=== PATIENT | female | born 1975 | race Caucasian/White ===

== ENCOUNTER → 2021-08-05 00:27 | Outpatient (CLI) | payer BC, SELFPAY ==
[2021-08-05 13:07] LABS: SARS-CoV-2 RNA PCR Negative
== END ==
PROVIDERS: PCP Nurse Practitioner Family; Visit Provider Surgery
DX: Z01.812 Encounter for preprocedural laboratory examination (principal); Z20.822 Contact with and (suspected) exposure to COVID-19
CPT/HCPCS: C9803; U0003; U0005

== ENCOUNTER 2021-08-05 08:42 | Outpatient (CLI) | payer BC, SELFPAY ==
[2021-08-05 09:09] LABS: Alanine Aminotransferase 18 U/L (4-35); Alkaline Phosphatase 77 U/L (38-126); Amylase 63 U/L (30-110); Aspartate Amino Transferase 23 U/L (14-36); Bilirubin,Total 0.5 mg/dL (0.2-1.3); Lipase 33 U/L (23-300)
--- NOTE | 2021-08-05 09:11 | ECG_ITS ---
Measurements Intervals [place] Rate: 69 P: 63 TX: 145 QRS: 8 QRSD: 97 T: 34 QT: 409 QTc: 439 Interpretive Statements SINUS RHYTHM NORMAL ECG NO PREVIOUS ECG AVAILABLE FOR COMPARISON Electronically Signed On 08-05-2021 13:21:00 CDT by Alpesh Urban M.D.
== END 2021-08-05 08:43 | disposition home or self-care (01) ==
LOC: ANHLAB 08:44
PROVIDERS: PCP Nurse Practitioner Family; Visit Provider Surgery
DX: Z01.818 Encounter for other preprocedural examination (principal); K80.20 Calculus of gallbladder without cholecystitis without obstruction; F17.200 Nicotine dependence, unspecified, uncomplicated
CPT/HCPCS: 36415; 80076; 82150; 83690; 86850; 86900; 86901; 93005

== ENCOUNTER 2021-08-08 01:35 | Day surgery (SDC) | payer BC, SELFPAY ==
[2021-08-03 15:31] VITALS: BMI 30.1
--- NOTE | 2021-08-03 15:45 | PC.NURSE ---
Report to the Outpatient Waiting Room, entrance under the green pavilion located off [facility], at time 12:00 on date 08/08/21. OR Time: 2:00. - You and your visitor will be asked a series of questions to screen for COVID 19 for your protection. - A mask is required within the hospital. One visitor will be allowed to accompany the patient into the hospital. Patients visitor will be instructed to remain with patient at all times or leave the building. We will allow the visitor to come back to the postoperative area when patient is ready. Preoperative COVID Testing Requirements: COVID TEST 08/05 AT 8:35 No COVID Test needed if: (proof is required; if not received patient will have Rapid Test prior to entry) - Patient has received COVID Vaccine at least 14 days prior to procedure date or - Patient has positive COVID test result within last 90 days of surgery date. COVID Test needed if above criteria is not met If not COVID vaccinated a COVID test must be conducted within 72 hours of surgery and patient is asked to isolate self from time of testing until procedure. You will go to the [facility] for your COVID testing. The [facility] is located at the corner of [address] [facility]. You will only be called if COVID results are positive and your surgeon may reschedule your elective surgery date. Patients may have clear liquids (water, carbonated beverages, clear teas, apple juice) until 3 hours prior to surgery (11:00) with a maximum of 20 ounces. - No food from midnight until time of surgery Take the following medications with a SIP of water the morning of surgery: INHALER (IF NEEDED) Medications to discontinue per physician: N/A Date to take last dose: N/A Please no make-up, nail croatian, hairspray, perfume, deodorant, or body powder the day of surgery. No jewelry (including any body piercings) or valuables the day of surgery, leave them at home. Please take a shower or bath the night before, or the morning of, surgery with an antibacterial soap. Wear comfortable, loose fitting clothing. HIBICLENS SHOWER - Jewelry must be removed prior to entering the operating room. Rings and piercings that are not removed may be cut off. - The hospital will not accept responsibility for valuables. - Please leave all valuables, including medications, at home the day of surgery. If you are going home after surgery, a licensed local combination truck driver must drive you home. - NO public transportation without another adult. - We recommend that an adult stay with you for 24 hours following discharge. - We also recommend that you do not drive, make important decision, drink alcoholic beverages, or take any drugs that were not prescribed by your health care provider for at least 24 hours after your discharge time. Follow any additional instructions given to you from your surgeon. Telephone instructions given to STONE PADILLA and asked if any additional questions and then verbalized understanding. Patient advised to call surgeon office or pre surgery nurse liaison [phone] if any additional questions.
[2021-08-08] VITALS (8 sets, daily range): BP systolic 134–161; BP diastolic 67–87; PULSE 66–91; RESP 10–18; TEMP 36.1–36.3; O2SAT 95–100
--- NOTE | 2021-08-08 08:17 | P.PNAN_ITS ---
Anes - Initial Pre Proc Eval Procedure: Operation Date: 08/08/21 14:00 Proposed Procedures p Laparoscopic Cholecystectomy, Possible Open - Juan David Mei DO Date/Time: 08/08/21 08:17 Surgeon: Juan David Mei DO Pre Op Diagnosis: symptomatic cholelithiasis Patient Data Age: 45 Gender: F Height: 1.6 m Weight: 77.11 kg Allergies Allergy/AdvReac Type Severity Reaction Status Date / Time apremilast [From Otezla] Allergy Intermediate Hypertension,high Verified 08/08/21 12:23 heart rate codeine AdvReac Severe Nausea and Verified 08/08/21 12:23 Vomiting bupropion AdvReac Intermediate Anxiety Verified 08/08/21 12:23 Home Medications Medication Instructions Recorded Confirmed Type albuterol sulfate 90 mcg/actuation 1 inh INHALATION Q4H 08/03/21 08/08/21 History aerosol inhaler cetirizine 10 mg tablet 10 mg PO HS PRN 08/03/21 08/08/21 History Patient hx anesthesia problems: none Family hx anesthesia problems: none Results Review: All pre-operative results and documents have been reviewed as part of the pre-operative evaluation. FOR[facility]LY [facility] Past Medical History Medical History (Updated 08/08/21 @ 08:17 by Francois Gordon MD) Anxiety Arthritis Asthma Hypercholesterolemia Obesity (BMI 30-39.9) Smoker Symptomatic cholelithiasis Surgical History Surgical History History of delivery History of lymph node excision History of partial thyroidectomy History of tubal ligation Family History Family History Father Hypertension Diabetes mellitus Skin cancer Mother Hypertension Breast cancer Skin cancer Social History Social History Smoking packs per day: 1 Smoking cigarettes per day: 20.0 Years smoked: 20 Smoking pack-years: 20.00 Smoking status: Current every day smoker Tobacco type: cigarettes Alcohol intake: current Alcohol use details: A COUPLE/YEAR Substance use: never Substance use type: does not use Living arrangements: with family Additional occupation/education comments: Computerized Mill [employer] Spiritual care concerns: No Anes - Eval Final PreProcedure Day of Procedure 08/08/21 08:17 Patient weight: obese Heart: regular rate and rhythm Lungs: clear to auscultation and normal air movement Airway: Mallampati scale class II Neurological: alert and oriented Last oral intake: >/= 8 hours ASA classification: III Emergent: no Anesthetic plan: proceed Anesthesia type and monitoring: general ETT Results Review: All pre-operative results and documents have been reviewed as part of the pre-operative evaluation. Informed Consent: The patient's anesthetic plan and its attendant risks and benefits were discussed with the patient/family/POA. Questions were solicited and answers provided to the satisfaction of the patient/family/POA.
[2021-08-08] MEDS: ACETAMINOPHEN 500 MG TABLET 1000 MG PO (12:27)
[2021-08-08] MEDS: LACTATED RINGERS 1,000 ML 30 ML IV CONT ×2 (13:06→16:05)
[2021-08-08] MEDS: KETOROLAC 15 MG/ML VIAL (*BKC) IV PUSH (13:07)
--- NOTE | 2021-08-08 14:31 | WPDHPUPDATE1 ---
History and Physical Update Update Date/Time: 08/08/21 14:31 History and Physical has been reviewed, including an updated exam of the patient. There are NO changes in the patient's condition. Risks, benefits, and alternatives have been discussed and questions answered. Patient agrees to proceed with procedure.
[2021-08-08] MEDS: ceFAZolin 2 GM/D5W 50 ML 2 GM/50 ML BAG IVPB (14:46)
--- NOTE | 2021-08-08 15:50 | W.PM.PROC2 ---
Procedure Note - Detailed Date of Procedure 08/08/21 Pre-op Diagnosis symptomatic cholelithiasis Post-op Diagnosis Other (Symptomatic cholelithiasis, abdominal cyst) Procedure Performed 1. Laparoscopic Cholecystectomy 2. Laparoscopic excision of abdominal cyst Surgeon Juan David Mei, DO Anesthesia General and Local (0.5% bupivacaine) Indications This is a 45-year-old woman who presented with right upper quadrant abdominal pain for the past 5 months. She has noticed pain after eating greasy foods. Her pain is radiating to her back. She continues to have recurrent symptoms despite trying to stay on a low-fat diet. Discussions were made with the patient about treatment options and decision was made to proceed with laparoscopic cholecystectomy, possible open. Findings Laparoscopic cholecystectomy was performed. The patient's gallbladder had some chronic gallbladder wall thickening and 1 medium sized gallstone within it. Cystic duct appeared normal in size. The gallbladder was removed and sent to the lab for pathology. The patient did have a few adhesions just below the umbilicus likely from her previous surgeries. These adhesions were taken down using scissors with electrocautery, and while doing this I did identify what appeared to be and a peritoneal inclusion cyst. The cyst was excised completely and was removed through the 11 mm port and sent for pathology. Description of Procedure Procedure as well as risks, benefits, and alternatives were discussed with patient. Written consent was obtained and placed in chart prior to procedure. The patient was brought back to surgical suite. Patient was placed in supine position on operating table. Time-out was done to confirm patient and procedure. Patient was then intubated by the anesthesia department. Abdomen was prepped and draped in sterile fashion using chlorhexidine prep. 0.5% bupivacaine with epinephrine was infiltrated at each site of incision. A 5 millimeter incision was made near the umbilicus, and a 5 millimeter Optiview trocar was advanced through the abdominal layers under direct visualization. Once inside the abdominal cavity, carbon dioxide was insufflated to create a pneumoperitoneum. The camera was inserted and the abdomen was inspected. No immediate abnormalities were identified. The patient was placed in reverse Trendelenburg position and rotated slightly to the left. An 11 millimeter incision was made in the subxiphoid region, and an 11 millimeter trocar was inserted under direct visualization. Two 5 millimeter incisions were made in the right upper quadrant, and two 5 millimeter trocars were inserted under direct visualization. The gallbladder was identified and grasped at the fundus and retracted superiorly. It was then grasped at the infundibulum retracted laterally. Careful dissection around the neck of the gallbladder was performed using blunt dissection with a [place] grasper and hook electrocautery. The cystic duct was identified, and a window was created behind it. The cystic artery was also identified and a window was created behind it. The critical view of safety was identified, visualizing the cystic duct running directly into the neck of the gallbladder, and the cystic artery running directly into the wall of the gallbladder. A 5 millimeter clip furniture sprayer was then used to place 2 clips proximally and 1 clip distally on both the cystic duct and cystic artery. They were then both transected using endoscopic scissors. Once safely away from the gabriel hepatitis, the gallbladder was dissected free from the liver bed using hook electrocautery. Hemostasis was achieved along the way. The gallbladder was removed completely and then removed through the subxiphoid port. The liver bed was then inspected. Hemostasis appeared adequate, and our clips appeared secure. The area was gently irrigated with sterile saline. There were a few adhesions in the lower midline just below the umb
--- NOTE | 2021-08-08 18:01 | SUR.PHASEII ---
PT AWAKE AND ALERT. DENIES PAIN OR NAUSEA. STATES SHE IS READY TO GO HOME
== END 2021-08-08 18:05 | disposition home or self-care (01) ==
PROVIDERS: PCP Nurse Practitioner Family; Visit Provider Surgery
PROC: 0FT44ZZ Resection of Gallbladder, Percutaneous Endoscopic Approach (ICD-10-PCS; CPT 47562; principal; 2021-08-08 14:00)
DX: K80.10 Calculus of gallbladder with chronic cholecystitis without obstruction (principal); K66.8 Other specified disorders of peritoneum; J45.909 Unspecified asthma, uncomplicated; F17.210 Nicotine dependence, cigarettes, uncomplicated; E66.9 Obesity, unspecified; Z68.30 Body mass index [BMI] 30.0-30.9, adult; Z79.51 Long term (current) use of inhaled steroids
CPT/HCPCS: 47562; 58662; 88304; 88305; A9270; J0690; J1100; J1885; J2250; J2405; J2704; J2710; J3010; J7030; J7120

== ENCOUNTER 2022-08-27 18:11 | Emergency (ER) | payer BC, SELFPAY ==
--- NOTE | ~2022-08-27 | XR_ITS ---
XR ankle LT min 3V 08/27/2022 18:38 INDICATION: Left ankle pain PROCEDURE: 4 views left ankle COMPARISON: 11/05/2011 FINDINGS: Fracture, dislocation or subluxation is not identified. The soft tissues appear within norm al limits. No foreign bodies are identified. IMPRESSION: 1: NO ACUTE BONE OR JOINT ABNORMALITY IDENTIFIED. Reviewed, dictated and finalized at location A.
--- NOTE | 2022-08-27 18:16 | ED.LOWEXIN ---
HPI - Extremity Injury (Lower) General Chief Complaint: Extremity Injury, Lower Stated Complaint: Left Ankle Injury Time Seen by Provider: 08/27/22 18:17 Source: patient and RN notes reviewed History of Present Illness HPI Narrative: Patient is a 46-year-old female presents to urgent care with complaints of left ankle pain after she rolled it while stepping on a hose 3 days ago. Patient states that she is only having mild exacerbated pain with ambulation. States that she has been taking ibuprofen and elevating the ankle. No other acute complaints. No acute distress noted. Patient aware of the plan of care. Some parts of this dictation were generated by voice recognition software and may contain typographical and/or grammatical inaccuracies. Related Data Home Medications Medication Instructions Recorded Confirmed albuterol sulfate 90 mcg/actuation 1 inh inhalation Q4H 08/03/21 08/24/21 aerosol inhaler cetirizine 10 mg tablet (Zyrtec) 10 mg PO HS PRN Allergy Symptoms 08/03/21 08/24/21 Allergies Allergy/AdvReac Type Severity Reaction Status Date / Time apremilast [From Otezla] Allergy Intermediate Hypertension,high Verified 08/24/21 15:32 heart rate codeine AdvReac Severe Nausea and Verified 08/24/21 15:32 Vomiting bupropion AdvReac Intermediate Anxiety Verified 08/24/21 15:32 Review of Systems Review of Systems: CONSTITUTIONAL: Denies fever, chills, or sweats. EYES: Denies visual changes, redness, or discharge. ENT: Denies rhinorrhea, congestion, sore throat, or otalgia. CARDIOVASCULAR: Denies chest pain, palpitations, or edema. RESPIRATORY: Denies cough or dyspnea. GASTROINTESTINAL: Denies abdominal pain, nausea, vomiting, or diarrhea. GENITOURINARY: Denies dysuria or hematuria. SKIN: Denies rash or itching. MUSCULOSKELETAL: Reports of left ankle pain NEUROLOGIC: Denies headache, numbness, or weakness. All other systems reviewed are negative, except as documented in HPI. FORMERLY [facility] Past Medical History Medical History Anxiety Arthritis Asthma Hypercholesterolemia Obesity (BMI 30-39.9) Smoker Symptomatic cholelithiasis Surgical History Surgical History History of delivery History of lymph node excision History of partial thyroidectomy History of tubal ligation Hx laparoscopic cholecystectomy 08/08/21 Family History Family History Father Hypertension Diabetes mellitus Skin cancer Mother Hypertension Breast cancer Skin cancer Social History Social History Smoking packs per day: 1 Smoking cigarettes per day: 20.0 Years smoked: 20 Smoking pack-years: 20.00 Smoking status: Current every day smoker Tobacco type: cigarettes Alcohol intake: current Alcohol use details: A COUPLE/YEAR Substance use: never Substance use type: does not use Living arrangements: with family Occupation/Education: occupation Additional occupation/education comments: Pool Nurse Spiritual care concerns: No Comments At the time of my signature, I reviewed and agree with the nursing past medical, surgical, social, and family history. There is no relevant family history pertinent to the patient complaint. Exam Narrative: GENERAL: This is a well-nourished, well-developed patient, in no apparent distress. HEAD: normocephalic, atraumatic. EYES: PERRL. Sclera clear/white. Vision is grossly intact. EARS: External ears normal NOSE: External nose normal with no obvious nasal discharge, nares without redness, no rhinorrhea. THROAT: Mucous membranes moist NECK: Neck supple SKIN: warm, intact with no suspicious lesions or rash, good texture and turgor. NEURO: awake, alert, and oriented to person, place and time. There were no obvious focal neurologic a
[2022-08-27 18:18] VITALS: BP 154/113; PULSE 109; RESP 20; TEMP 36.8; O2SAT 100
== END 2022-08-27 18:56 | disposition home or self-care (01) ==
PROVIDERS: Emergency Provider Nurse Practitioner Family; PCP Nurse Practitioner Family
DX: S93.402A Sprain of unspecified ligament of left ankle, initial encounter (principal); S96.912A Strain of unspecified muscle and tendon at ankle and foot level, left foot, initial encounter; X50.9XXA Other and unspecified overexertion or strenuous movements or postures, initial encounter; F17.210 Nicotine dependence, cigarettes, uncomplicated; M19.90 Unspecified osteoarthritis, unspecified site; J45.909 Unspecified asthma, uncomplicated; E78.00 Pure hypercholesterolemia, unspecified; Z90.89 Acquired absence of other organs
CPT/HCPCS: 73610; 99213; G0463